=== PATIENT | male | born 1950 | race African-American/Black ===

== ENCOUNTER 2018-04-21 09:24 | Emergency (ER) | payer BC ==
[~2018-04-21] VITALS: Ht 167.6 cm; Wt 94.6 kg
[~2018-04-21 09:24] MED LIST: FENOFIBRATE145 MG PO
[2018-04-21 09:28] VITALS: BP 144/85
== END 2018-04-21 10:34 | disposition home or self-care (01) ==
LOC: EME 09:24
DX: T15.91XA Foreign body on external eye, part unspecified, right eye, initial encounter (principal); X58.XXXA Exposure to other specified factors, initial encounter; Y93.89 Activity, other specified; I10 Essential (primary) hypertension; E78.5 Hyperlipidemia, unspecified; Z87.891 Personal history of nicotine dependence
CPT/HCPCS: 99281; 99283